=== PATIENT | female | born 1985 | race Two or more races ===

== ENCOUNTER → 2024-10-28 | Outpatient (CLI) | payer MEDICAID, SELFPAY ==
--- NOTE | 2024-10-28 | XR_ITS ---
Examination: Wrist, left 3 views Technique: Wrist AP, oblique, lateral 3 views Date and time of exam: October 28, 2024 1320 hours INDICATIONS: Injury to the wrist October 15, 2024 with persistent wrist pain. FINDINGS: No fracture or dislocation No foreign body IMPRESSION: No fracture or dislocation
--- NOTE | 2024-10-28 | XR_ITS ---
Examination: Hand, left 3 views Technique: Hand AP, oblique, lateral 3 views Date and time of exam: October 28, 2024 1320 hours INDICATIONS: Injury to the hand October 15, 2024 with hand pain FINDINGS: Old appearing fractures ungual tuft tips distal phalanges third, fourth, fifth digits but clinical correlation advised No opaque foreign bodies IMPRESSION: Old appearing fractures distal phalanges third, fourth, fifth digits but clinical correlation advised
== END | disposition home or self-care (01) ==
PROVIDERS: PCP Family Medicine; Referring Provider Nurse Practitioner Gerontology; Visit Provider Nurse Practitioner Gerontology
DX: S69.92XA Unspecified injury of left wrist, hand and finger(s), initial encounter (principal); X58.XXXA Exposure to other specified factors, initial encounter; Z87.81 Personal history of (healed) traumatic fracture
CPT/HCPCS: 73110; 73130